=== PATIENT | male | born 1970 ===

== ENCOUNTER 2020-12-12 11:21 | Inpatient (IN) | payer BC ==
[2020-12-12 11:48] VITALS: BMI 23.8
[2020-12-12] MEDS ORDERED: METHOCARBAMOL 500 MG TABLET PO PRN (13:46)
[2020-12-12] MEDS ORDERED: MAGNESIUM HYDROX 2400MG/30ML ORAL SUSPENSION 30 ML CUP PO PRN (13:46)
[2020-12-12] MEDS ORDERED: IBUPROFEN 400 MG TABLET (FP) PO PRN (13:46)
[2020-12-12] MEDS ORDERED: BISMUTH SUBSALICYLATE 524 MG/30 ML PO PRN (13:46)
[2020-12-12] MEDS ORDERED: ACETAMINOPHEN 325 MG TABLET (FP) PO PRN ×2 (13:46)
[2020-12-12] MEDS ORDERED: MAGNESIUM CITRATE 300 ML BOTTLE PO PRN (13:46)
[2020-12-12] MEDS ORDERED: diazePAM 5 MG TABLET PO PRN (13:46)
[2020-12-12] MEDS ORDERED: ONDANSETRON *ODT* 4 MG TABLET SL PRN (13:46)
[2020-12-12] MEDS ORDERED: MENTHOL/PHENOL 1 EACH UD MM PRN (13:46)
[2020-12-12] MEDS ORDERED: MAG HYDROX/AL HYDROX/SIMETH 30 ML UNIT-DOSE CUP PO PRN (13:46)
[2020-12-12] MEDS: hydrOXYzine PAMOATE 25 MG CAPSULE (FP) PO SCH ×3 (15:23→22:26)
[2020-12-12] MEDS: diazePAM 5 MG TABLET PO SCH ×2 (17:21→22:27)
[2020-12-12] MEDS: THIAMINE HCL 100 MG TABLET (FP) PO SCH (22:26)
[2020-12-12] MEDS: MELATONIN 5 MG TABLETS PO SCH (22:27)
[2020-12-13] MEDS: hydrOXYzine PAMOATE 25 MG CAPSULE (FP) PO SCH ×5 (05:20→22:18)
[2020-12-13] MEDS: diazePAM 5 MG TABLET PO SCH ×4 (05:20→22:18)
[2020-12-13 10:12] LABS: ALBUMIN 3.6 g/dl (3.4-5.0); BLOOD UREA NITROGEN 14.2 mg/dL (7-18); CALCIUM 8.7 mg/dL (8.5-10.1)
[2020-12-13 10:13] LABS: CREATININE 0.8 mg/dL (0.55-1.3)
[2020-12-13 10:15] LABS: BILIRUBIN,TOTAL 1.2 mg/dL (0.2-1); TOT PROT 6.9 g/dl (6.4-8.2)
[2020-12-13 10:16] LABS: HEMATOCRIT 36.7 % (35.4-49); HEMOGLOBIN 12.4 GM/dL (11.7-16.9); MCH 29.7 pg (25.7-33.7); MCHC 33.7 g/dl (32.0-35.9); MEAN CELL VOLUME 88.3 fl (80-96); MEAN PLT VOLUME 7.3 fl (7.5-11.1); PLATELET COUNT 228 10^3/uL (134-434); RBC 4.16 M/mm3 (4.00-5.60); RDW 16.5 % (11.9-15.9); WHITE BLOOD COUNT 5.6 K/mm3 (4.0-10.0)
[2020-12-13] MEDS: PRENATAL VITAMINS W/ FOLIC ACID TABLET (FP) PO SCH (10:22)
[2020-12-13] MEDS: NICOTINE POLACRILEX 2 MG GUM BUC PRN ×4 (10:23→22:20)
[2020-12-13] MEDS: NICOTINE 7 MG/24 HOURS TOPICAL PATCH TD SCH (10:24)
[2020-12-13] MEDS: THIAMINE HCL 100 MG TABLET (FP) PO SCH (22:18)
[2020-12-13] MEDS: MELATONIN 5 MG TABLETS PO SCH (22:19)
[2020-12-14] MEDS: hydrOXYzine PAMOATE 25 MG CAPSULE (FP) PO SCH ×5 (05:55→22:03)
[2020-12-14] MEDS: diazePAM 5 MG TABLET PO SCH ×3 (05:55→22:03)
[2020-12-14] MEDS: PRENATAL VITAMINS W/ FOLIC ACID TABLET (FP) PO SCH (10:05)
[2020-12-14] MEDS: NICOTINE 7 MG/24 HOURS TOPICAL PATCH TD SCH (10:05)
[2020-12-14] MEDS: NICOTINE POLACRILEX 2 MG GUM BUC PRN ×4 (10:05→20:49)
[2020-12-14] MEDS: THIAMINE HCL 100 MG TABLET (FP) PO SCH (22:03)
[2020-12-14] MEDS: MELATONIN 5 MG TABLETS PO SCH (22:04)
[2020-12-15] MEDS: hydrOXYzine PAMOATE 25 MG CAPSULE (FP) PO SCH ×2 (05:33→10:10)
[2020-12-15] MEDS ORDERED: diazePAM 5 MG TABLET PO SCH (06:00)
[2020-12-15] MEDS: NICOTINE POLACRILEX 2 MG GUM BUC PRN (09:17)
[2020-12-15 09:26] VITALS: BP 130/61; PULSE 80; TEMP 98.2
[2020-12-15] MEDS: PRENATAL VITAMINS W/ FOLIC ACID TABLET (FP) PO SCH (10:09)
[2020-12-15] MEDS: NICOTINE 7 MG/24 HOURS TOPICAL PATCH TD SCH (10:11)
[2020-12-16] MEDS ORDERED: diazePAM 5 MG TABLET PO ONE (06:00)
== END 2020-12-15 11:03 | disposition home or self-care (01) | DRG 775 ==
LOC: YASAS 11:21 → Y6N 14:01
PROVIDERS: ADMIT Allergy & Immunology; ATTEND Allergy & Immunology
PROC: HZ2ZZZZ Detoxification Services for Substance Abuse Treatment (ICD-10-PCS; principal; 2020-12-12)
DX: F10.230 Alcohol dependence with withdrawal, uncomplicated (principal); F17.213 Nicotine dependence, cigarettes, with withdrawal; Z88.5 Allergy status to narcotic agent
CPT/HCPCS: 36415; 80053; 85027; 86780; C9803; Q0162; U0003; U0005